=== PATIENT | female | born 1940 | race Caucasian/White ===

== ENCOUNTER 2020-09-15 09:33 | Outpatient (REF) | payer MEDICARE, OTHER, SELFPAY ==
[2020-09-15 10:11] LABS: MANUAL DIFF FLAG NO
[2020-09-15 10:13] LABS: Basophils Percent Auto 0.6 % (0-2); Eosinophils Absolute Auto 0.2 X10*3/uL (0.0-0.4); Hematocrit 40.8 % (37-47); Hemoglobin 13.1 g/dl (12.0-16.0); Imm Gran Abs Auto 0.01 X10*3/uL (0.00-0.03); Imm Gran Pct Auto 0.2 % (0.0-0.4); Lymphocytes Absolute Auto 1.4 X10*3/uL (1.2-4.9); Lymphocytes Percent Auto 26.1 % (20-40); Mean Corpuscular HGB Conc 32.1 g/dl (31.0-35.0); Mean Corpuscular Volume 93.6 fL (80-98); Monocytes Absolute Auto 0.5 X10*3/uL (0.1-1.2); Monocytes Percent Auto 9.1 % (2-11); Neutrophils Absolute Auto 3.2 X10*3/uL (2.0-8.3); Platelet Count 198 X10*3/uL (160-400); Red Blood Count 4.36 X10*6/uL (4.20-5.50); Red Cell Distribution Width 12.7 % (11.0-16.0); White Blood Count 5.3 X10*3/uL (4.8-10.8)
[2020-09-15 10:28] LABS: Alanine Aminotransferase 15 U/L (0-31); Albumin Level 4.1 g/dL (3.5-5.0); Alkaline Phosphatase 67 U/L (39-117); Anion Gap 11 (12-20); Aspartate Amino Transferase 22 U/L (5-31); Bilirubin Total 0.5 mg/dL (0.0-1.0); Blood Urea Nitrogen 15 mg/dL (9-16); Calcium 9.5 mg/dL (8.4-10.2); Carbon Dioxide 27 mmol/L (22-29); Chloride 101 mmol/L (96-108); Cholesterol 174 mg/dL; Estimated Glomerular Filt Rate > 60; Glucose Fasting 106 mg/dL (60-99); HDL Cholesterol 47 mg/dL; LDL Cholesterol Calculated 105 mg/dl; Potassium 4.1 mmol/L (3.3-5.1); Sodium 135 mmol/L (135-145); Total Protein 6.7 g/dL (6.5-8.0); Triglycerides 111 mg/dL
[2020-09-15 10:48] LABS: Thyroid Stimulating Hormone 0.85 uIU/mL (0.32-4.0); Vitamin D 25-OH Total 23.9 ng/mL (>30)
[2020-09-15 12:14] LABS: Glucose Urine UA NEG (NEG); Leukocyte Esterase Urine 2+ (NEG); Nitrite Urine NEG (NEG); Urine Blood TRACE (NEG); Urine Ketones NEG (NEG); Urine Protein NEG (NEG-TRACE)
[2020-09-15 12:16] LABS: Appearance Urine CLOUDY; Color Urine YELLOW
[2020-09-15 12:34] LABS: Bacteria Urine 2+ /LPF; RBC Urine 0-2 /HPF (0); Squamous Epithelial Cell Urine 4+ /LPF
== END 2020-09-15 09:34 | disposition home or self-care (01) ==
LOC: HO.LAB 09:33
PROVIDERS: PCP Internal Medicine; Visit Provider Internal Medicine
DX: E78.00 Pure hypercholesterolemia, unspecified (principal); I77.9 Disorder of arteries and arterioles, unspecified; F41.9 Anxiety disorder, unspecified
CPT/HCPCS: 36415; 80053; 80061; 81001; 82306; 84443; 85025

== ENCOUNTER 2021-10-25 10:59 | Outpatient (REF) | payer MEDICARE, OTHER, SELFPAY ==
[2021-10-25 11:14] LABS: MANUAL DIFF FLAG NO
[2021-10-25 12:10] LABS: Basophils Percent Auto 0.7 % (0-2); Eosinophils Absolute Auto 0.2 X10*3/uL (0.0-0.4); Eosinophils Percent Auto 3.9 % (0-4); Hemoglobin 13.6 g/dl (12.0-16.0); Imm Gran Abs Auto 0.01 X10*3/uL (0.00-0.03); Imm Gran Pct Auto 0.2 % (0.0-0.4); Lymphocytes Absolute Auto 1.4 X10*3/uL (1.2-4.9); Lymphocytes Percent Auto 23.2 % (20-40); Mean Corpuscular HGB Conc 32.4 g/dl (31.0-35.0); Mean Corpuscular Hemoglobin 29.9 pg (27.0-33.0); Mean Corpuscular Volume 92.3 fL (80.0-98.0); Mean Platelet Volume 10.9 fL (9.4-12.3); Monocytes Absolute Auto 0.5 X10*3/uL (0.1-1.2); Monocytes Percent Auto 7.5 % (2-11); Neutrophils Percent Auto 64.5 % (45-73); Platelet Count 193 X10*3/uL (160-400); Red Blood Count 4.55 X10*6/uL (4.20-5.50); Red Cell Distribution Width 12.7 % (11.0-16.0); White Blood Count 6.1 X10*3/uL (4.8-10.8)
[2021-10-25 12:42] LABS: Cholesterol 174 mg/dL; HDL Cholesterol 47 mg/dL; LDL Cholesterol Calculated 105 mg/dl; Triglycerides 114 mg/dL
[2021-10-25 13:04] LABS: Vitamin D 25-OH Total 34.4 ng/mL (>30)
== END 2021-10-25 11:00 | disposition home or self-care (01) ==
LOC: HO.LAB 10:59
PROVIDERS: PCP Internal Medicine; Visit Provider Internal Medicine
DX: E78.00 Pure hypercholesterolemia, unspecified (principal); I77.9 Disorder of arteries and arterioles, unspecified; F41.9 Anxiety disorder, unspecified; E55.9 Vitamin D deficiency, unspecified
CPT/HCPCS: 36415; 80061; 82306; 84443; 85025

== ENCOUNTER 2022-08-26 10:34 | Outpatient (REF) | payer MEDICARE, OTHER, SELFPAY ==
[2022-08-26 10:51] LABS: MANUAL DIFF FLAG NO
[2022-08-26 12:07] LABS: Basophils Percent Auto 0.7 % (0-2); Eosinophils Absolute Auto 0.3 X10*3/uL (0.0-0.4); Eosinophils Percent Auto 4.9 % (0-4); Hematocrit 42.2 % (37.0-47.0); Hemoglobin 13.9 g/dl (12.0-16.0); Imm Gran Abs Auto 0.01 X10*3/uL (0.00-0.03); Imm Gran Pct Auto 0.2 % (0.0-0.4); Lymphocytes Absolute Auto 1.6 X10*3/uL (1.2-4.9); Lymphocytes Percent Auto 26.8 % (20-40); Mean Corpuscular HGB Conc 32.9 g/dl (31.0-35.0); Mean Corpuscular Hemoglobin 30.3 pg (27.0-33.0); Mean Corpuscular Volume 92.1 fL (80.0-98.0); Mean Platelet Volume 11.6 fL (9.4-12.3); Monocytes Absolute Auto 0.5 X10*3/uL (0.1-1.2); Monocytes Percent Auto 7.7 % (2-11); Neutrophils Absolute Auto 3.6 x10*3/uL (2.0-8.3); Neutrophils Percent Auto 59.7 % (45-73); Platelet Count 215 X10*3/uL (160-400); Red Blood Count 4.58 X10*6/uL (4.20-5.50); Red Cell Distribution Width 13.2 % (11.0-16.0)
[2022-08-26 14:05] LABS: Alanine Aminotransferase 15 U/L (0-31); Alkaline Phosphatase 55 U/L (39-117); Anion Gap 12 (12-20); Aspartate Amino Transferase 22 U/L (5-31); Bilirubin Total 0.7 mg/dL (0.0-1.0); Blood Urea Nitrogen 16 mg/dL (9-16); Calcium 9.3 mg/dL (8.4-10.2); Carbon Dioxide 24 mmol/L (22-29); Chloride 107 mmol/L (96-108); Cholesterol 218 mg/dL; Estimated Glomerular Filt Rate > 60; Glucose Random 99 mg/dL (60-115); HDL Cholesterol 50 mg/dL; LDL Cholesterol Calculated 144 mg/dl; Potassium 4.2 mmol/L (3.3-5.1); Sodium 139 mmol/L (135-145); Total Protein 6.5 g/dL (6.5-8.0); Triglycerides 120 mg/dL
[2022-08-26 14:10] LABS: Thyroid Stimulating Hormone 1.55 uIU/mL (0.32-4.0); Vitamin D 25-OH Total 40.6 ng/mL (>30)
== END 2022-08-26 10:35 | disposition home or self-care (01) ==
LOC: HO.LAB 10:34
PROVIDERS: PCP Internal Medicine; Visit Provider Internal Medicine
DX: E78.00 Pure hypercholesterolemia, unspecified (principal); I77.9 Disorder of arteries and arterioles, unspecified; F41.9 Anxiety disorder, unspecified; E55.9 Vitamin D deficiency, unspecified
CPT/HCPCS: 36415; 80053; 80061; 82306; 84443; 85025

== ENCOUNTER 2023-03-15 14:20 | Outpatient (REF) | payer MEDICARE, OTHER, SELFPAY ==
--- NOTE | ~2023-03-15 | US_ITS ---
EXAMINATION: US EXTRACRANIAL CAROTID DUPLEX, BILATERAL CLINICAL INFORMATION: Bilateral carotid artery disease. COMPARISON: Carotid ultrasound 11/19/2018. TECHNIQUE: Real-time ultrasound and Doppler techniques (integrating B-mode 2-D vascular images, Doppler spectral analysis and color-flow Doppler imaging) were utilized to interrogate the extracranial carotid arteries, the vertebral arteries and proximal subclavian arteries bilaterally. The degree of stenosis is determined by criteria similar to NASCET. FINDINGS: Right Side: 1. There is moderate atherosclerotic plaque seen in the bifurcation/proximal ICA region. 2. The common carotid artery PSV proximally is 75 cm/s and distally 89 cm/s. 3. The proximal internal carotid artery velocities are 173 cm/s systolic and 19 cm/s diastolic. 4. The proximal external carotid artery PSV is 211 cm/s. 5. The vertebral artery shows bidirectional flow. 6. The subclavian artery waveforms are biphasic. Left Side: 1. There is moderate atherosclerotic plaque seen in the bifurcation/proximal ICA region. 2. The common carotid artery PSV proximally is 79 cm/s and distally 72 cm/s. 3. The proximal internal carotid artery velocities are 130 cm/s systolic and 21 cm/s diastolic. 4. The proximal external carotid artery PSV is 191 cm/s. 5. The vertebral artery shows antegrade flow. 6. The subclavian artery velocity is elevated at 291 cm/s. US/US carotid duplex BI IMPRESSION: 1. RIGHT: Moderate, hemodynamically significant stenosis of the proximal right internal carotid artery corresponding to a 50-79% stenosis by velocity criteria. 2. LEFT: Moderate, hemodynamically significant stenosis of the proximal left internal carotid artery corresponding to a 50-79% stenosis by velocity criteria. 3. Again seen is reversed flow in the right vertebral artery. 4. There is no change in the category severity of disease when compared to the previous study dated 11/19/2018.
== END 2023-03-15 14:21 | disposition home or self-care (01) ==
LOC: HO.US 14:20
PROVIDERS: PCP Internal Medicine; Visit Provider Internal Medicine
DX: I77.9 Disorder of arteries and arterioles, unspecified (principal); I65.23 Occlusion and stenosis of bilateral carotid arteries
CPT/HCPCS: 93880

== ENCOUNTER 2023-08-16 10:01 | Outpatient (REF) | payer MEDICARE, OTHER, SELFPAY ==
[2023-08-16 11:51] LABS: Alanine Aminotransferase 14 U/L (0-31); Alkaline Phosphatase 62 U/L (39-117); Anion Gap 8 (12-20); Aspartate Amino Transferase 23 U/L (5-31); Bilirubin Total 0.4 mg/dL (0.0-1.0); Blood Urea Nitrogen 13 mg/dL (9-16); Calcium 10.1 mg/dL (8.4-10.2); Carbon Dioxide 30 mmol/L (22-29); Chloride 106 mmol/L (96-108); Cholesterol 186 mg/dL (<200); Estimated Glomerular Filt Rate > 60; Glucose Fasting 104 mg/dL (60-99); HDL Cholesterol 45 mg/dL (>40); LDL Cholesterol Calculated 115 mg/dL (<100); Potassium 4.3 mmol/L (3.3-5.1); Sodium 140 mmol/L (135-145); Total Protein 6.9 g/dL (6.5-8.0); Triglycerides 133 mg/dL (<150)
== END 2023-08-16 10:02 | disposition home or self-care (01) ==
LOC: HO.LAB 10:01
PROVIDERS: PCP Internal Medicine; Visit Provider Internal Medicine
DX: E78.00 Pure hypercholesterolemia, unspecified (principal)
CPT/HCPCS: 36415; 80053; 80061

== ENCOUNTER 2025-04-22 09:32 | Emergency (ER) | payer MEDICARE, SELFPAY ==
--- NOTE | ~2025-04-22 | CT_ITS ---
EXAMINATION: CT HEAD WITHOUT CONTRAST CLINICAL INFORMATION: head ache COMPARISON: None available. TECHNIQUE: Contiguous axial imaging was performed from the skull base to vertex without intravenous administration of contrast. This CT examination was performed using dose optimization techniques as appropriate, variously including the following: *Automated exposure control *Adjustment of mA and/or kV according to patient size (this includes techniques or standardized protocols for targeted exams where dose is matched to indication/reason for exam; i.e. extremities or head) *Use of iterative reconstruction technique DLP: 704 mGy-cm FINDINGS: No acute intracranial hemorrhage, mass effect, midline shift, hydrocephalus or herniation. Pimentel-white matter differentiation is normal. Bilateral multifocal patchy and confluent deep periventricular white matter hypodensities involving centrum semiovale and becerra radiata. Posterior cranial fossa contents demonstrated no acute hemorrhage or mass effect. Prominence of the extra-axial CSF spaces cerebral sulci and ventricles. Sellar/suprasellar region demonstrated no gross masses. Craniocervical junction is intact with normal position of the cerebellar tonsils. Degenerative changes in the periodontal C1 region. Calcified plaques in the cavernous supracavernous segments both ICAs. Mucosal thickening, ethmoid cells. No air-fluid levels in the paranasal sinuses. Probable old traumatic deformity in the nasal bones. Increased density within the right tympanic cavity and right mastoid antrum and mastoid air cells without coalescence. CT/CT head/brain wo IV con IMPRESSION: No acute intracranial hemorrhage. 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 Inflammatory versus infectious processes, right petrous bone. Global cerebral atrophy. Atherosclerosis disease, intracranial. Electronically signed by: Redd Rosado MD 04/22/2025 02:12 PM [facility]
[2025-04-22 09:53] VITALS: BP 141/64; BP 145/84; PULSE 75; PULSE 90; RESP 18; TEMP 35.3; O2SAT 100; O2SAT 99; BMI 21.6
[2025-04-22 10:15] VITALS: RESP 16
[2025-04-22 10:42] LABS: MANUAL DIFF FLAG NO
[2025-04-22 10:44] LABS: Hematocrit 40.0 % (37.0-47.0); Hemoglobin 13.2 g/dl (12.0-16.0); Imm Gran Abs Auto 0.01 X10*3/uL (0.00-0.03); Imm Gran Pct Auto 0.1 % (0.0-0.4); Lymphocytes Absolute Auto 1.3 X10*3/uL (1.2-4.9); Mean Corpuscular HGB Conc 33.0 g/dl (31.0-35.0); Mean Corpuscular Hemoglobin 30.8 pg (27.0-33.0); Mean Corpuscular Volume 93.5 fL (80.0-98.0); NRBC Abs Auto 0.000 X10*3/uL (0.0-0.012); NRBC Pct Auto 0.0 /100WBC (0.0-0.2); Platelet Count 212 X10*3/uL (160-400); Red Blood Count 4.28 X10*6/uL (4.20-5.50); White Blood Count 6.9 X10*3/uL (4.8-10.8)
--- NOTE | 2025-04-22 10:46 | ED_ITS ---
HPI - General Adult General Chief complaint: General Medical Stated complaint: LOCKED OUT OF HOUSE SINCE 4AM,BACK PAIN FROM COLD Time Seen by Provider: 04/22/25 09:58 Source: patient and EMS Mode of arrival: EMS Limitations: no limitations History of Present Illness ED Provider: JASON Roche HPI narrative: Chief Complaint: ?I was locked out of my house for hours and now I?m very cold and shivering.? History of Present Illness: 85-year-old female brought to the Emergency Department by ambulance after being locked out of her home since approximately 04:00 this morning when the outdoor temperature was ~5 ?F. The patient attempted to call 911 on her iPhone, but the call did not go through. She did not want to wake her son, so she remained outside for a few hours until discovered and transported to the ED. Upon arrival, core temperature was 95.5 ?F. She reports feeling very cold and experiencing shivering; this is her first episode of hypothermia. Denies any other symptoms. She is alert and oriented ?4. Related Data Previous Rx's ?Medication ?Instructions ?Recorded amoxicillin 875 mg-potassium 1 tab PO BID 10 days #20 tabs 09/06/24 clavulanate 125 mg tablet loratadine 5 mg-pseudoephedrine ER 1 tab PO Q12H #30 t abs 09/06/24 120 mg tablet,extended release,12hr (Claritin-D 12 Hour) alprazolam 0.5 mg tablet 0.5 mg PO DAILY PRN anxiety #15 03/16/25 tabs Allergies Allergy/AdvReac Type Severity Reaction Status Date / Time doxycycline AdvReac Unknown Lightheaded Verified 04/22/25 10:20 ness Simvastatin AdvReac Unknown Joint Pain Uncoded 09/06/24 12:21 Review of Systems 2 Review of Systems: Yes all other systems are reviewed and are negative PMFSH Past Medical History Attestation statement: The following information was validated with the patient. Source: old records reviewed and nursing notes reviewed Social History Social History Alcohol intake: current Alcohol intake frequency: holidays/special occasions only Physical Exam ED Vital Signs: Vital Signs - 24 hr 04/22/25 09:53 04/22/25 10:15 04/22/25 12:00 Temperature 95.5 F L 98.5 F Pulse Rate 75 82 Respiratory Rate 18 16 14 Blood Pressure 141/64 H 162/52 H Pulse Oximetry 100 98 Oxygen Delivery Method Room Air Room Air 04/22/25 17:15 04/22/25 17:24 Temperature 97.8 F 97.8 F Pulse Rate 69 69 Respiratory Rate 16 16 Blood Pressure 145/71 H 145/71 H Pulse Oximetry 98 98 Oxygen Delivery Method Room Air Room Air BMI result Body Mass Index 21.6 Course Reevaluation(s) Reevaluation #1: CBC unremarkable. Chemistry with no acute findings needing intervention. Lactic acid is normal. This supports that hypothermia is likely in the setting of cold environment. UA still pending Time: 11:15 Reevaluation #2: Patient's son at the bedside and was interested in learning more about assisted living. Patient is open to PT evaluation. Patient's temperature normalize on the Angelic Hugger. Time: 14:21 Reevaluation #3: Patient is becoming confused therefore a CT scan was done which was unremarkable for acute findings. They tried to obtain a urine however patient became acutely confused started taking her clothes off and asking where her shoes were. At this time I think it is best to put in a psych consult for capacity as patient has been having cognitive decline recently question undiagnosed dementia Additional Reevaluation(s): Patient's son is willing to stay at patient's home with her until another plan is figured out patient is adamant she does not want to stay here, she does not want to go to custodial at this time she would like to go home with her cat and she wants to smoke. 1646 Patient was seen by Psychiatry this is likely dementia. Patient and patient's son would like patient discharge they will work on outpatient accommodations with services at home. Patient's son will will stay with patient until things are figured out. It has been nearly and possible obtaining a urine from this patient she has gone a few times however did not understand the concept of pain in the had. This last time she paid in the hot and filled it with toilet paper. Urine is not foul smelling or abnormal in collar she has no urinary symptoms according to son who is at the bedside this has been her normal mentation for the past few months. Patient was also seen by case management who recommended psych evaluation psych provider did evaluate patient and again summarize results as above. Patient will be discharged home she should not be left unattended as there are some concerns for her safety based off of her judgment. Patient should not be driving. UA w/ trace bacteria but no UTI sx also patient forgot to wipe when optaining urine. At this tiem will not treat for UTI Medications Administered Discontinued Medications Generic Name Dose Route Start Last Admin Trade Name Feliz PRN Reason Stop Dose Admin Nicotine 7 mg 04/22/25 14:52 04/22/25 15:03 Nicotine 7 Mg Patch.Td24 TRANSDERMA 04/22/25 14:53 7 mg ONCE ONE Administration Medical Decision Making Medical Decision Making MDM Narrative: [age] Elderly female with accidental mild hypothermia after prolonged cold exposure. Problem #1: Accidental Hypothermia (T 95.5 ?F) Assessment: Mild hypothermia likely secondary to prolonged exposure to ambient temperature of ~5 ?F. Patient currently hemodynamically stable, nontoxic, main symptom cold/shivering. Plan: * Active external rewarming with Angelic Hugger device. * Continuous monitoring of vital signs and mental status. * Obtain EKG to monitor for hypothermia-related cardiac changes. * Reassess temperature and clinical status frequently; adjust warming measures as needed. * Disposition to be determined based on response to rewarming and repeat assessments. Differential Diagnosis Differential Diagnoses: The differential diagnosis associated with the presentation includes Differential Diagnosis: * Accidental hypothermia due to environmental exposure: Most likely given the clear history of prolonged exposure to extreme cold and absence of other symptoms. * Sepsis or systemic infection: Elderly patients may present with hypothermia rather than fever; however, patient is nontoxic, alert, and has no other complaints or signs of infection. * Endocrine causes (hypothyroidism, adrenal insufficiency): Can predispose to hypothermia, especially in elderly; no prior history or suggestive symptoms reported, but should be considered if clinical course is atypical. * Medication-induced hypothermia: Certain medications (e.g., sedatives, antipsychotics) can impair thermoregulation; medication history not provided, so cannot be excluded. * Neurologic impairment or dementia: May lead to impaired judgment or thermoregulation, increasing risk for accidental hypothermia; patient is alert and oriented ?4, but underlying cognitive impairment should be considered in elderly. * Malnutrition or dehydration: Can increase susceptibility to hypothermia; no evidence of poor intake or dehydration at present, but risk factors may be present in elderly. * Other causes of altered mental status or exposure: Any condition leading to impaired mobility, judgment, or awareness could contribute; no evidence of acute neurologic or psychiatric symptoms at this time. Consult Healthcare Provider Management of the patient was discussed with: Technical Assistant (CM /PT ) Lab Data MDM Lab Attestation statement: I reviewed the patient's lab results. 04/22/25 10:36 04/22/25 10:36 Labs: Lab Results 04/22/25 04/22/25 Range/Units 10:36 16:55 WBC 6.9 (4.8-10.8) X10*3/uL RBC 4.28 (4.20-5.50) X10*6/uL Hgb 13.2 (12.0-16.0) g/dl Hct 40.0 (37.0-47.0) % MCV 93.5 (80.0-98.0) fL MCH 30.8 (27.0-33.0) pg MCHC 33.0 (31.0-35.0) g/dl RDW 13.0 (11.0-16.0) % Plt Count 212 (160-400) X10*3/uL MPV 10.4 (9.4-12.3) fL Immature Gran % (Auto) 0.1 (0.0-0.4) % Neut % (Auto) 73.5 H (45-73) % Lymph % (Auto) 18.5 L (20-40) % [place] % (Auto) 6.5 (2-11) % Eos % (Auto) 0.7 (0-4) % Baso % (Auto) 0.7 (0-2) % Lymph # (Auto) 1.3 (1.2-4.9) X10*3/uL [place] # (Auto) 0.5 (0.1-1.2) X10*3/uL Eos # (Auto) 0.1 (0.0-0.4) X10*3/uL Baso # (Auto) 0.1 (0.0-0.2) X10*3/uL Abs Immat Gran (auto) 0.01 (0.00-0.03) X10*3/uL Absolute Neuts (auto) 5.1 (2.0-8.3) x10*3/uL Absolute Nucleated RBC 0.000 (0.0-0.012) X10*3/uL Nucleated RBC % (auto) 0.0 (0.0-0.2) /100WBC Sodium 138 (135-145) mmol/L Potassium 4.0 (3.3-5.1) mmol/L Chloride 104 (96-108) mmol/L Carbon Dioxide 27 (22-29) mmol/L Anion Gap 11 L (12-20) BUN 11 (9-16) mg/dL Creatinine 0.68 (0.5-1.4) mg/dL Estim Creat Clear Calc 49.6 Estimated GFR > 60 Random Glucose 97 (60-115) mg/dL Lactic Acid 1.1 (0.5-2.0) mmol/L Calcium 10.0 (8.4-10.2) mg/dL Magnesium 2.2 (1.6-2.6) mg/dL Total Bilirubin 0.4 (0.0-1.0) mg/dL AST 31 (5-31) U/L ALT 19 (0-31) U/L Alkaline Phosphatase 60 (39-117) U/L Total Protein 7.0 (6.5-8.0) g/dL Albumin 4.4 (3.5-5.0) g/dL TSH 1.89 (0.32-4.0) uIU/mL Urine Color Yellow Urine Appearance Cloudy Urine pH 6.0 (5.0-9.0) Ur Specific [place] 1.020 (1.005-1.025) Urine Protein 30 (1+) H (Neg-Trace) mg/dL Urine Glucose (UA) Negative (Negative) mg/dL Urine Ketones Trace (Negative) mg/dL Urine Blood Trace H (Negative) Urine Nitrite Negative (Negative) Ur Leukocyte Esterase Small (1+) H (Negative) Urine RBC 3-5 H (0-2) /HPF Urine WBC 0-5 (0-5) /HPF Ur Squamous Epith Cells 3-5 (0-2) /HPF Urine Bacteria Trace (None Seen) Hyaline Casts 0-2 (0-2) /LPF Independent Interpretation I performed an independent interpretation of an: EKG (Normal sinus rhythm Septal infarct , age undetermined Abnormal ECG When compared with ECG of 04-Nov-2006 11:54, Premature ventricular complexes are no longer Present Septal infarct is now Present Nonspecific T wave abnormality, worse in Inferior leads T wave inversion no longer evident in Lateral le) and CT Scan (CT/CT head/brain wo IV con IMPRESSION: No acute intracranial hemorrhage. 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 Inflammatory versus infectious processes, right petrous bone. Global cerebral atrophy. Atherosclerosis disease, intracranial.) Interpretation: CT/CT head/brain wo IV con IMPRESSION: No acute intracranial hemorrhage. 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 Inflammatory versus infectious processes, right petrous bone. Global cerebral atrophy. Atherosclerosis disease, intracranial. I do not suspect infectious process no fevers, white count or tachycardia Radiology Impression Discussion of test interpretation with radiology: I have reviewed the radiologist's reading. Independent Historian Clinical information obtained from an independent historian. History obtained from or confirmed by: EMS External Record Review External record reviewed: Inpatient record, Office record, Outpatient record, Prior outpatient labs, Prior outpatient radiology, Primary care record and Outside ED record Critical Care Time Critical Care Time Critical Care Time: Yes Total Critical Care Time: 35 Attestation: I attest to this time spent taking care of the patient, obtaining history, physical, reviewing labs, imaging, treatment of patients condition +/- specialist/hospitalist consult +/- procedure Discharge Plan Discharge Clinical Impression: Hypothermia, Dementia Patient Disposition: Home, Self-Care Instructions: Acute Hypothermia (ED) Additional Instructions: Take your medications as prescribed. If you were prescribed antibiotics today, it is important that you take your medication to their entirety, do not skip any doses, do not finish them early. Follow-up with your primary care provider this week. Return to the emergency department with new or worsening symptoms. Such as fevers, chills, chest pain, shortness of breath, nausea, vomiting, dizziness, headache, vision changes, lethargy In case of emergency call 911 You should not be driving CT/CT head/brain wo IV con IMPRESSION: No acute intracranial hemorrhage. 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 Inflammatory versus infectious processes, right petrous bone. Global cerebral atrophy. Atherosclerosis disease, intracranial. Prescriptions: No Action amoxicillin-pot clavulanate 875-125 mg tablet 1 tab PO BID 10 Days Qty: 20 0RF Claritin-D 12 Hour 5-120 mg tablet extended release 12 hr 1 tab PO Q12H Qty: 30 0RF alprazolam 0.5 mg tablet 0.5 mg PO DAILY PRN (Reason: anxiety) Qty: 15 0RF Referrals: Joel Rosen MD [Primary Care Provider, Internal Medicine] Stand Alone Forms: Work/School Release Interventions: ED Discharge Assessment Last Done: 04/22/25 17:24 Discharge Date/Time: 04/22/25 17:26 Print Language: Khmer
[2025-04-22 11:00] LABS: Alanine Aminotransferase 19 U/L (0-31); Albumin Level 4.4 g/dL (3.5-5.0); Alkaline Phosphatase 60 U/L (39-117); Anion Gap 11 (12-20); Aspartate Amino Transferase 31 U/L (5-31); Blood Urea Nitrogen 11 mg/dL (9-16); Calcium 10.0 mg/dL (8.4-10.2); Carbon Dioxide 27 mmol/L (22-29); Chloride 104 mmol/L (96-108); Creatinine Clr Calc Pharmacy 49.6; Estimated Glomerular Filt Rate > 60; Magnesium 2.2 mg/dL (1.6-2.6); Potassium 4.0 mmol/L (3.3-5.1); Sodium 138 mmol/L (135-145); Total Protein 7.0 g/dL (6.5-8.0)
--- NOTE | 2025-04-22 11:00 | PC.NURSE ---
patient arrived a&ox3, was wet/cold from outdoor exposure. Pt was undressed/put in hospital attire, rectal temp performed and blankets applied, provider was notified and nuria hugger was obtained, pt placed on cardiac exercise physiologist, iv inserted, labs drawn, pt asking for warm cup of tea. Call gomez within reach, plan of care ongoing.
--- NOTE | 2025-04-22 11:00 | ECG_ITS ---
Test Reason : HYPOTHERMIA Blood Pressure : */* mmHG Vent. Rate : 82 BPM Atrial Rate : 82 BPM P-R Int : 116 ms QRS Dur : 74 ms QT Int : 402 ms P-R-T Axes : 28 49 40 degrees QTcB Int : 469 ms Normal sinus rhythm Septal infarct , age undetermined Abnormal ECG When compared with ECG of 04-Nov-2006 11:54, Premature ventricular complexes are no longer Present Septal infarct is now Present Nonspecific T wave abnormality, worse in Inferior leads T wave inversion no longer evident in Lateral leads Referred By: Delphine Roche Electronically Signed By: MARKELL MANDUJANO MD
--- NOTE | 2025-04-22 11:14 | PC.NURSE ---
ekg performed, pt given tea and a sandwich. diet ordered so she can eat lunch
[2025-04-22 12:00] VITALS: BP 162/52; PULSE 82; RESP 14; TEMP 36.9; O2SAT 98
--- NOTE | 2025-04-22 12:45 | PC.NURSE ---
peter phone number (lives near [place]) [facility] [phone]
--- NOTE | 2025-04-22 14:04 | MHC.CM.ED ---
Received consult for assessment of d/c needs: pt brought to ED from home where she locked herself outside. Pt called her son who then called police. Pt presented to ED w/hypothermia resolved via Angelic boogie. Pt states she was leaving the home do run errands. Pt's son states she resides alone without services, DME and is able to drive to appointments. Son states pt has begun to show early signs of memory impairment and is concerned with her home safety. Pt feels she is well equipted to manage independently. Pt pleasant and oriented but did exhibit alteration in memory when recounting earlier events. Discussed levels of assisted care with pt and son: both are receptive to [facility] referral for [facility] - Son is very involved and will look into assisted living facilities near his home. ED PA updated. Son to transfer to home
[2025-04-22] MEDS: Nicotine 7 MG PATCH.TD24 TRANSDERMA (15:03)
--- NOTE | 2025-04-22 16:35 | PM.PSYCN ---
History of Present Illness Date of Service: 04/22/2025 Chief Complaint: LOCKED OUT OF HOUSE SINCE 4AM,BACK PAIN FROM COLD Reason for Consult: capacity to make medical decisions. Requesting physician: Delphine Roche Discussed with referring provider: Yes Sources of Information: patient interviewed, chart reviewed and crisis/core team assessment reviewed HPI Narrative: Mrs. [facility] is an 85 year-old woman who was brought by son due to pt locking herself out of her house. She presented with hypothermia. Son had reported concern in terms of her memory/forgetfulness. CBC mostly unremarkable. CMP without electrolyte abnormalities. Pt seen in the ED. She presents as calm and cooperative. She is not able to tell where she is, she reports she is at a place where families find a new home. She is able to tell the month nor the year. She does not know why she was brought here, even after reminding her that she is at the hospital. She is not able to tell what where she was for Thanksgiving looking at her son often for answers. Son reports she called him when she was not able to get back into her house. It appears pt did not know how to call 911. Son reports patient still drives. As far as he is aware, pt has not been dx with dementia. Diagnostics Vital Signs (24Hr): Vital Signs - 24 hr 04/22/25 09:53 04/22/25 10:15 04/22/25 12:00 Temperature 95.5 F L 98.5 F Pulse Rate 75 82 Respiratory Rate 18 16 14 Blood Pressure 141/64 H 162/52 H Pulse Oximetry 100 98 Oxygen Delivery Method Room Air Room Air BMI result Body Mass Index 21.6 Labs 04/22/25 10:36 04/22/25 10:36 Labs: Laboratory Results - last 48 hr 04/22/25 10:36 WBC 6.9 RBC 4.28 Hgb 13.2 Hct 40.0 MCV 93.5 MCH 30.8 MCHC 33.0 RDW 13.0 Plt Count 212 MPV 10.4 Immature Gran % (Auto) 0.1 Neut % (Auto) 73.5 H Lymph % (Auto) 18.5 L [place] % (Auto) 6.5 Eos % (Auto) 0.7 Baso % (Auto) 0.7 Lymph # (Auto) 1.3 [place] # (Auto) 0.5 Eos # (Auto) 0.1 Baso # (Auto) 0.1 Abs Immat Gran (auto) 0.01 Absolute Neuts (auto) 5.1 Absolute Nucleated RBC 0.000 Nucleated RBC % (auto) 0.0 Sodium 138 Potassium 4.0 Chloride 104 Carbon Dioxide 27 Anion Gap 11 L BUN 11 Creatinine 0.68 Estim Creat Clear Calc 49.6 Estimated GFR > 60 Random Glucose 97 Lactic Acid 1.1 Calcium 10.0 Magnesium 2.2 Total Bilirubin 0.4 AST 31 ALT 19 Alkaline Phosphatase 60 Total Protein 7.0 Albumin 4.4 TSH 1.89 Imaging Radiology Impressions: ITS Impressions Head CT 04/22/25 13:48 IMPRESSION: No acute intracranial hemorrhage. 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 Inflammatory versus infectious processes, right petrous bone. Global cerebral atrophy. Atherosclerosis disease, intracranial. Electronically signed by: Redd Rosado MD 04/22/2025 02:12 PM [facility] [place] Status Exam Mental Status Exam Narrative: Appearance: wearing hospital gown, holding her purse, in NAD. Ambulating with steady gait. Psychomotor: no agitation or retardation noted Speech: clear, normal rate/rhythm/volume, spontaneous TP: with some derailement TC: hoping to go home soon Mood: good Affect: congruent, smiles often SI: none HI: none VH/AH: none Delusions: none, confabulation Insight/judgment: impaired x 2. Memory/cog: alert, oriented mostly to self, not able to tell that she is in the hospital, nor the month nor year, nor situation. Medications Allergies Allergies Allergy/AdvReac Type Severity Reaction Status Date / Time doxycycline AdvReac Unknown Lightheaded Verified 04/22/25 10:20 ness Simvastatin AdvReac Unknown Joint Pain Uncoded 09/06/24 12:21 Assessment & Plan Assessment & Plan (1) Major neurocognitive disorder: Status: Acute Code(s): F03.90 - Unspecified dementia, unspecified severity, without behavioral disturbance, psychotic disturbance, mood disturbance, and anxiety Plan Mrs. [facility] is an 85 year-old woman who was brought by son after she locked herself out of the home. Son had reported pt is very forgetful. On exam, pt is oriented mostly only to self, unable to tell where she is, nor the month, nor the situation. No signs of delirium- her attention is mostly intact. Discussed with son that given her presentation and concerns that he is bring up, without further assessment, she requires 24/7 supervision. Son reports that he plans to bring her with him and follow up with PCP and LTC for placement. Suspect pt has AD. Also, advised son, pt should not be driving without further clearance from DMV. Total time managing care of this patient today ____ minutes.
[2025-04-22 17:15] VITALS: BP 145/71; PULSE 69; RESP 16; TEMP 36.6; O2SAT 98
[2025-04-22 17:22] LABS: Appearance Urine Cloudy; Glucose Urine UA Negative (Negative); PH 6.0 (5.0-9.0); Specific Gravity - Urine 1.020 (1.005-1.025); UMIC TRIGGER UACC YES
[2025-04-22 17:24] VITALS: BP 145/71; PULSE 69; RESP 16; TEMP 36.6; O2SAT 98
[2025-04-22 17:46] LABS: UACC Culture Trigger YES
== END 2025-04-22 17:26 | disposition home or self-care (01) ==
PROVIDERS: Physician Assistant; Emergency Provider Emergency Medicine Emergency Medical Services; PCP Internal Medicine
DX: T68.XXXA Hypothermia, initial encounter (principal); M54.9 Dorsalgia, unspecified; R41.0 Disorientation, unspecified; X31.XXXA Exposure to excessive natural cold, initial encounter
CPT/HCPCS: 36415; 70450; 80053; 81001; 81003; 83605; 83735; 84443; 85025; 87040; 87086; 93005; 97161; 99285

== ENCOUNTER → 2025-04-22 10:21 | Outpatient (BNV) | payer MEDICARE, SELFPAY | PROVIDERS: Emergency Provider Emergency Medicine Emergency Medical Services; PCP Internal Medicine; Visit Provider Social Worker | DX: F03.90 Unspecified dementia, unspecified severity, without behavioral disturbance, psychotic disturbance, mood disturbance, and anxiety (principal) | CPT/HCPCS: 99285 ==

== ENCOUNTER → 2025-04-22 11:00 | Outpatient (BNV) | payer MEDICARE, SELFPAY | PROVIDERS: Emergency Provider Emergency Medicine Emergency Medical Services; PCP Internal Medicine; Visit Provider Internal Medicine Cardiovascular Disease | DX: R94.31 Abnormal electrocardiogram [ECG] [EKG] (principal); T68.XXXA Hypothermia, initial encounter | CPT/HCPCS: 93010 ==

== ENCOUNTER → 2025-04-22 12:36 | Outpatient (BNV) | payer MEDICARE, SELFPAY | PROVIDERS: Emergency Provider Emergency Medicine Emergency Medical Services; PCP Internal Medicine; Visit Provider Radiology Diagnostic Radiology | DX: I67.2 Cerebral atherosclerosis (principal); I67.82 Cerebral ischemia; G31.9 Degenerative disease of nervous system, unspecified | CPT/HCPCS: 70450 ==